=== PATIENT | female | born 1930 | race Caucasian/White ===

== ENCOUNTER 2016-11-17 12:26 | Emergency (ER) | payer OTHER ==
[~2016-11-17] VITALS: Ht 160 cm; Wt 56.2 kg
[~2016-11-17 12:26] MED LIST: ADVAIR 250/501 EA INH; ASPIRIN81 M1 PO; CEPHALEXIN500 M1 PO; GABAPENTIN300 MG PO; HYDROCODONE BIT1 T11 PO; LOPRESSOR25 MG PO; PERPHENAZINE; SYMBICORT1 AE1 INH; ZOFRAN4 MG PO
[2016-11-17] MEDS ORDERED: COZAAR100 MG PO (12:46)
[2016-11-17 12:58] VITALS: BP 147/68
[2016-11-17 13:15] LABS: EOS % 0.1 % (1.0-4.0); HEMATOCRIT 34.7 % (37.0-47.0); HEMOGLOBIN 11.2 g/dl (12.0-16.0); LYMPH # 0.8 10*3/uL (1.3-4.4); LYMPH % 10.6 % (27.0-41.0); MEAN CELL VOLUME 93.3 fl (81.0-99.0); MEAN CORPUSCULAR HGB 30.1 pg (27.0-31.0); MEAN CORPUSCULAR HGB CONC 32.3 g/dl (33.0-37.0); MEAN PLATELET VOLUME 9.3 fl (9.6-12.3); MONO # 0.6 10*3/uL (0.1-1.0); MONO % 7.9 % (3.0-9.0); NEUT # 6.2 10*3/uL (2.3-7.9); PLATELET COUNT AUTOMATED 176 10*3/uL (130-400); RED BLOOD COUNT 3.72 10*6/uL (4.10-5.10); RED CELL DISTRI WIDTH 12.9 % (0-14.5); WHITE BLOOD COUNT 7.7 10*3/uL (4.8-10.8)
[2016-11-17 13:27] LABS: BUN 18 mg/dl (7-24); CARBON DIOXIDE 29 mmol/L (21-32); CHLORIDE 106 mmol/L (98-107); EST GLOM FILT AFRICAN AMERICAN > 60 ml/min; GLUCOSE 89 mg/dL (65-99); POTASSIUM 4.5 mmol/L (3.5-5.1); SODIUM 144 mmol/L (136-145)
[2016-11-17] MEDS ORDERED: PROVENTIL0.09 MG/A1 INH (14:33)
[2016-11-17] MEDS ORDERED: VIBRAMYCIN100 MG PO (14:33)
== END 2016-11-17 15:12 | disposition home or self-care (01) ==
LOC: ED 12:26
PROVIDERS: Emergency Medicine
DX: J44.1 Chronic obstructive pulmonary disease with (acute) exacerbation (principal); J45.909 Unspecified asthma, uncomplicated; Z79.82 Long term (current) use of aspirin; Z79.899 Other long term (current) drug therapy

== ENCOUNTER 2017-05-05 10:52 | Inpatient (IN) | payer OTHER ==
[~2017-05-05] VITALS: Ht 160 cm; Wt 55.3 kg
[~2017-05-05 10:52] MED LIST changes: +COZAAR100 MG PO; -GABAPENTIN300 MG PO; +NEURONTIN300 MG PO; +PROVENTIL0.09 MG/A1 INH; +VIBRAMYCIN100 MG PO
[2017-05-05 10:57] VITALS: BP 153/74
[2017-05-05 11:33] LABS: BASO % 0.2 % (0.0-1.0); EOS % 0.1 % (1.0-4.0); HEMATOCRIT 35.3 % (37.0-47.0); HEMOGLOBIN 11.3 g/dl (12.0-16.0); LYMPH # 0.6 10*3/uL (1.3-4.4); LYMPH % 4.1 % (27.0-41.0); MEAN CELL VOLUME 93.4 fl (81.0-99.0); MEAN CORPUSCULAR HGB 29.9 pg (27.0-31.0); MEAN PLATELET VOLUME 9.9 fl (9.6-12.3); MONO # 1.2 10*3/uL (0.1-1.0); MONO % 8.6 % (3.0-9.0); NEUT # 11.5 10*3/uL (2.3-7.9); NEUT % 86.6 % (47.0-73.0); PLATELET COUNT AUTOMATED 185 10*3/uL (130-400); RED BLOOD COUNT 3.78 10*6/uL (4.10-5.10); RED CELL DISTRI WIDTH 13.3 % (0-14.5); WHITE BLOOD COUNT 13.3 10*3/uL (4.8-10.8)
[2017-05-05 11:41] LABS: ACT PARTIAL THROMBO TIME 27.8 SECONDS (20.8-31.5)
[2017-05-05 11:52] LABS: ALBUMIN 3.4 gm/dl (3.1-4.5); ALKALINE PHOSPHATASE 71 U/L (45-117); BUN 21 mg/dl (7-24); CHLORIDE 104 mmol/L (98-107); CKMB 0.6 ng/ml (0.5-3.6); CPK 137 U/L (26-192); CREATININE 0.86 mg/dL (0.55-1.02); LIPASE 159 U/L (73-393); MAGNESIUM 2.2 mg/dL (1.5-2.1); POTASSIUM 4.2 mmol/L (3.5-5.1); SGOT/AST 14 IU/L (3-35); SGPT/ALT 13 U/L (12-78); SODIUM 137 mmol/L (136-145); TOTAL PROTEIN 6.8 gm/dL (6.4-8.2)
[2017-05-05 11:53] LABS: TROPONIN I < 0.015 ng/ml (<0.045)
[2017-05-05 12:54] VITALS: BP 140/80
--- NOTE | 2017-05-05 14:15 | NUR ---
A 86, admitted to , under the services of MATT Farr DO with a diagnosis of ASTHMA EXACERBATION. Chief complaint is SOB. Patient arrived via bed from ER. Monitor applied. Initial assessment completed. Vital signs taken and recorded. MATT FARR DO notified of admission to the unit. Orders received. See assessment for past medical history, medications and allergies. Patient and/or family oriented to unit. [facility] reviewed. Clothing/patient valuable form completed. CAITIE BASURTO
[2017-05-05] MEDS ORDERED: XANAX0.25 MG PO (14:43)
[2017-05-05] MEDS ORDERED: ATARAX,VISTARIL10 MG PO (14:43)
--- NOTE | 2017-05-05 14:44 | NUR ---
MEDICATION LIST UPDATED WITH PHARMACIST AT [facility].
[2017-05-05 16:00] VITALS: BP 117/98
--- NOTE | 2017-05-05 18:20 | NUR ---
PT. C/O HEADACHE "5" ON 0-10 SCALE, DESCRIBED "THUMPING" , REQUESTED MOTRIN FOR RELIEF. PROVIDED TYELENOL 650MG FOR RELIEF. PT. STATED NO ADVERSE EFFECTS TO TYELENOL.
--- NOTE | 2017-05-05 19:06 | NUR ---
late entry---DR GARNER NOTIFIED THAT PT IS UNABLE TO TOLERATE BOLUS & IVF TURNED DOWN TO 80/HR PER ORDERS.
[2017-05-05 20:00] VITALS: BP 144/46
--- NOTE | 2017-05-05 20:00 | NUR ---
24 HR chart check completed.
[2017-05-06] VITALS: BP 128/73
--- NOTE | 2017-05-06 00:04 | NUR ---
PATIENT AWAKE IN BED, A&OX3. PATIENT DENIES ANY SOB AT REST/CHEST PAIN AT THIS TIME. MOIST NON-PRODUCTIVE COUGH NOTED. PATIENT ENCOURAGED TO COUGH/DEEP BREATHE. WILL MONITOR. CALL LIGHT LEFT WITHIN REACH.
--- NOTE | 2017-05-06 03:49 | NUR ---
PATIENT ASLEEP IN BED AT THIS TIME. RESPIRATIONS EASY, NO S/S OF DISTRESS NOTED. WILL MONITOR. CALL LIGHT IN REACH.
[2017-05-06 06:59] LABS: HEMATOCRIT 35.1 % (37.0-47.0); HEMOGLOBIN 11.2 g/dl (12.0-16.0); MEAN CELL VOLUME 95.1 fl (81.0-99.0); MEAN CORPUSCULAR HGB 30.4 pg (27.0-31.0); MEAN CORPUSCULAR HGB CONC 31.9 g/dl (33.0-37.0); MEAN PLATELET VOLUME 9.8 fl (9.6-12.3); PLATELET COUNT AUTOMATED 168 10*3/uL (130-400); RED BLOOD COUNT 3.69 10*6/uL (4.10-5.10); RED CELL DISTRI WIDTH 13.3 % (0-14.5); WHITE BLOOD COUNT 13.1 10*3/uL (4.8-10.8)
[2017-05-06 07:36] LABS: ROULEAUX SLIGHT; TOTAL CELLS COUNTED 100 #CELLS
[2017-05-06 07:37] LABS: PLATELET SUFFICIENCY NORMAL (NORMAL)
[2017-05-06 07:39] LABS: BUN 21 mg/dl (7-24); CHLORIDE 109 mmol/L (98-107); CREATININE 0.76 mg/dL (0.55-1.02); POTASSIUM 4.6 mmol/L (3.5-5.1); SODIUM 142 mmol/L (136-145)
[2017-05-06 07:46] LABS: THYROID STIM HORMONE (HS) 0.297 uIU/ml (0.358-4.75)
[2017-05-06 07:59] LABS: VITAMIN D, 25-HYDROXY 15.6 ng/mL (30-100)
[2017-05-06 08:00] VITALS: BP 132/60; BP 168/74
--- NOTE | 2017-05-06 08:00 | NUR ---
Human Resource Internship in to talk to patient. Patient states lives at [address] with HER . There are 0 steps in the home. Physician: [facility] [place] Pharmacy: [facility] [place] Home health services: NONE Patient's level of ADLs: INDEPENDENT Patient has working utilities: YES DME: NONE Follow-up physician's appointment after d/c: WILL BE MADE PRIOR TO DC Does patient want to access PORTAL?: Discharge plan HOME. [place] DENIES ANY DC NEEDS. HAS 2 SONS THAT HELP WHEN NEEDED. DOES NOT FEEL SHE NEEDS HOME HEALTH SERVICES
--- NOTE | 2017-05-06 08:00 | NUR ---
PT. AWAKE AND ORIENTED X 3 UPON ENTERING ROOM, DIMINISHED LUNG SOUNDS WITH SLIGHT RALES TO EACH LOBE, S1S2, BOARD UPDATED, BREAKFAST ORDERED, CALL LIGHT WITHIN REACH, BED IN LOWEST POSITION, WHEELS LOCKED; NO COMPLAINTS OR REQUESTS FROM PT. AT THIS TIME.
--- NOTE | 2017-05-06 08:54 | NUR ---
PT. UP TO CHAIR AT THIS TIME TO EAT BREAKFAST, ASSISTED WITH IV POLE, BUT GAIT STEADY DURING AMBULATION, NO SIGNS OR COMPLAINTS OF SOB AT THIS TIME.
[2017-05-06 12:00] VITALS: BP 138/64
--- NOTE | 2017-05-06 12:45 | NUR ---
PT. DECLINED XANAX AT THIS TIME, AND DENIES ANXIETY AT THIS TIME.
[2017-05-06 16:00] VITALS: BP 144/62
[2017-05-06 20:00] VITALS: BP 146/68
[2017-05-07] VITALS: BP 153/90
--- NOTE | 2017-05-07 | NUR ---
PT RESTING IN BED. NO C/O AT THIS TIME. CALL LIGHT IN REACH. SEE SHIFT ASSESSMENT.
--- NOTE | 2017-05-07 04:00 | NUR ---
PT SLEEPING IN BED. RESP-EASY AND REGULAR. CALL LIGHT IN REACH.
--- NOTE | 2017-05-07 06:00 | NUR ---
TOLERATED ROUTINE MED WITH NO PROBLEM. NO C/O AT THIS TIME. CALL LIGHT IN REACH.
[2017-05-07 06:47] LABS: HEMATOCRIT 36.5 % (37.0-47.0); HEMOGLOBIN 11.3 g/dl (12.0-16.0); MEAN CELL VOLUME 96.1 fl (81.0-99.0); MEAN CORPUSCULAR HGB 29.7 pg (27.0-31.0); PLATELET COUNT AUTOMATED 213 10*3/uL (130-400); RED CELL DISTRI WIDTH 13.5 % (0-14.5); WHITE BLOOD COUNT 23.5 10*3/uL (4.8-10.8)
[2017-05-07 07:01] LABS: CHLORIDE 107 mmol/L (98-107); CREATININE 0.91 mg/dL (0.55-1.02); FREE T4 0.94 ng/dl (0.76-1.46); POTASSIUM 4.5 mmol/L (3.5-5.1); SODIUM 142 mmol/L (136-145)
[2017-05-07 07:11] LABS: BUN 31 mg/dl (7-24); TOTAL CELLS COUNTED 100 #CELLS
[2017-05-07 07:12] LABS: PLATELET SUFFICIENCY NORMAL (NORMAL)
--- NOTE | 2017-05-07 07:29 | NUR ---
Shift chart check completed.
--- NOTE | 2017-05-07 07:35 | NUR ---
PT. ALERT AND ORIENTED UPON ENTERING ROOM, SLIGHT WHEEZE ON AUSCULTATION, PT. DENIES SOB DURING REST, DENIES CP, DENIES N/V/D. CALL LIGHT WITHIN REACH, BED IN LOWEST POSITION, WHEELS LOCKED.
[2017-05-07 08:00] VITALS: BP 152/84
--- NOTE | 2017-05-07 10:00 | NUR ---
GOVIND REVIEWED WITH
[2017-05-07 12:00] VITALS: BP 138/71
--- NOTE | 2017-05-07 13:25 | NUR ---
1325 SAT 95% RA AT REST 1355 SAT 95% RA AT REST SAT 92-93 RA DURING AMBULATION APPROXIMATELY 64 FEET. HR 95-100 SAT 91% RA AT REST DURING RECOVERY. SLIGHT SOB NOTED AFTER WALK. PT HAVING SOME DIFFICULTY WITH BALANCE WHEN WALKING. STATES SHE CAN NOT WALK ANYMORE. AND RN NOTIFIED.
[2017-05-07 16:45] VITALS: BP 152/65
[2017-05-07 20:00] VITALS: BP 140/76
--- NOTE | 2017-05-07 20:10 | NUR ---
PT SITTING UP AT SIDE OF BED. RESP-EASY AND REGULAR. PT C/O CONSTIPATION, MEDICATED WITH DUCOLAX PO PER PRN ORDER, SEE EMAR. CALL LIGHT IN REACH. SEE SHIFT ASSESSMENT.
--- NOTE | 2017-05-07 22:00 | NUR ---
PT RESTING IN BED. TOLERATED ROUTINE MEDS WITH NO PROBLEM. NO C/O AT THIS TIME. CALL LIGHT IN REACH.
[2017-05-08] VITALS: BP 176/83
--- NOTE | 2017-05-08 00:10 | NUR ---
PT RESTING IN BED WITH EYES CLOSED. RESP-EASY AND REGULAR. CALL LIGHT IN REACH. SEE SHIFT ASSESSMENT.
--- NOTE | 2017-05-08 04:00 | NUR ---
PT SLEEPING IN BED. RESP-EASY AND REGULAR. CALL LIGHT IN REACH.
--- NOTE | 2017-05-08 06:00 | NUR ---
PT RESTING IN BED WITH EYES CLOSED, AWAKENS EASILY. TOLERATED ROUTINE MED WITH NO PROBLEM. CALL LIGHT IN REACH.
[2017-05-08 06:36] LABS: HEMATOCRIT 33.3 % (37.0-47.0); HEMOGLOBIN 10.7 g/dl (12.0-16.0); MEAN CELL VOLUME 94.6 fl (81.0-99.0); MEAN CORPUSCULAR HGB 30.4 pg (27.0-31.0); MEAN CORPUSCULAR HGB CONC 32.1 g/dl (33.0-37.0); PLATELET COUNT AUTOMATED 216 10*3/uL (130-400); RED BLOOD COUNT 3.52 10*6/uL (4.10-5.10); RED CELL DISTRI WIDTH 13.4 % (0-14.5); WHITE BLOOD COUNT 19.8 10*3/uL (4.8-10.8)
[2017-05-08 07:02] LABS: BUN 38 mg/dl (7-24); CHLORIDE 107 mmol/L (98-107); CREATININE 0.84 mg/dL (0.55-1.02); POTASSIUM 4.4 mmol/L (3.5-5.1); SODIUM 140 mmol/L (136-145)
[2017-05-08 07:25] LABS: PLATELET SUFFICIENCY NORMAL (NORMAL); TOTAL CELLS COUNTED 100 #CELLS
[2017-05-08 08:00] VITALS: BP 164/80
[2017-05-08 12:00] VITALS: BP 145/90
[2017-05-08 16:00] VITALS: BP 94/76
[2017-05-08 20:00] VITALS: BP 155/78
--- NOTE | 2017-05-08 20:20 | NUR ---
PT SITTING UP IN CHAIR WITH VISITOR AT HER SIDE. RESP-EASY AND REGULAR. NO C/O AT THIS TIME. CALL LIGHT IN REACH. SEE SHIFT ASSESSMENT.
--- NOTE | 2017-05-08 22:00 | NUR ---
PT SITTING UP IN BED. RESP-EASY AND REGULAR. TOLERATED ROUTINE MED WITH NO PROBLEM. CALL LIGHT IN REACH.
[2017-05-09] VITALS: BP 156/72
--- NOTE | 2017-05-09 00:15 | NUR ---
PT RESTING IN BED. NO C/O AT THIS TIME. NO SOB NOTED. CALL LIGHT IN REACH. SEE SHIFT ASSESSMNET.
--- NOTE | 2017-05-09 04:00 | NUR ---
PT SLEEPING IN BED. RESP-EASY AND REGULAR. CALL LIGHT IN REACH.
--- NOTE | 2017-05-09 05:36 | NUR ---
TOLERATED ROUTINE MED WITH NO PROBLEM. C/O HEADACHE RATES PAIN 4 OR 5 ON PAIN SCALE 0-10. MEDICATED WITH TYLENOL PO PER PRN ORDER, SEE EMAR. CALL LIGHT IN REACH.
[2017-05-09 06:16] LABS: BASO % 0.1 % (0.0-1.0); HEMATOCRIT 35.7 % (37.0-47.0); HEMOGLOBIN 11.2 g/dl (12.0-16.0); LYMPH # 0.8 10*3/uL (1.3-4.4); LYMPH % 5.6 % (27.0-41.0); MEAN CELL VOLUME 94.4 fl (81.0-99.0); MEAN CORPUSCULAR HGB 29.6 pg (27.0-31.0); MEAN CORPUSCULAR HGB CONC 31.4 g/dl (33.0-37.0); MEAN PLATELET VOLUME 9.9 fl (9.6-12.3); MONO # 0.6 10*3/uL (0.1-1.0); MONO % 4.6 % (3.0-9.0); NEUT # 12.4 10*3/uL (2.3-7.9); NEUT % 88.5 % (47.0-73.0); PLATELET COUNT AUTOMATED 221 10*3/uL (130-400); RED BLOOD COUNT 3.78 10*6/uL (4.10-5.10); RED CELL DISTRI WIDTH 13.3 % (0-14.5)
[2017-05-09 06:41] LABS: BUN 32 mg/dl (7-24); CHLORIDE 104 mmol/L (98-107); CREATININE 0.84 mg/dL (0.55-1.02); POTASSIUM 4.3 mmol/L (3.5-5.1); SODIUM 142 mmol/L (136-145)
[2017-05-09 08:00] VITALS: BP 160/88
[2017-05-09 12:00] VITALS: BP 154/78
--- NOTE | 2017-05-09 13:00 | NUR ---
PT COMPLAINS OF NO PAIN POST PLERODESIS.
[2017-05-09 16:00] VITALS: BP 150/56
[2017-05-09 20:00] VITALS: BP 156/67
--- NOTE | 2017-05-09 20:00 | NUR ---
PT C/O CONSTIPATION. PRN LAXATIVES AVAILABE REVIEWED. MEDICATED WITH PRN DULCOLAX PER PT REQUEST.
[2017-05-10] VITALS: BP 125/82
[2017-05-10 06:53] LABS: HEMATOCRIT 35.2 % (37.0-47.0); HEMOGLOBIN 11.1 g/dl (12.0-16.0); MEAN CELL VOLUME 94.9 fl (81.0-99.0); MEAN CORPUSCULAR HGB 29.9 pg (27.0-31.0); MEAN CORPUSCULAR HGB CONC 31.5 g/dl (33.0-37.0); MEAN PLATELET VOLUME 9.5 fl (9.6-12.3); PLATELET COUNT AUTOMATED 226 10*3/uL (130-400); RED BLOOD COUNT 3.71 10*6/uL (4.10-5.10); RED CELL DISTRI WIDTH 13.2 % (0-14.5)
[2017-05-10 07:20] LABS: BUN 31 mg/dl (7-24); CHLORIDE 106 mmol/L (98-107); CREATININE 0.79 mg/dL (0.55-1.02); POTASSIUM 4.9 mmol/L (3.5-5.1); SODIUM 144 mmol/L (136-145)
[2017-05-10 07:34] LABS: PLATELET SUFFICIENCY NORMAL (NORMAL); TOTAL CELLS COUNTED 100 #CELLS
[2017-05-10 08:00] VITALS: BP 158/94
--- NOTE | 2017-05-10 08:30 | NUR ---
ALTERNATIVE ENERGY ENGINEER VS. DISCUSSED P.T. NOTES OVER WEEKEND. DOES NOT WANT TO GO TO SNF FACILITY. STATES FEELING STRONGER TODAY. DOES AGREE TO HOME HEALTH [facility] CHOOSES [facility] NURSE AND PT.
[2017-05-10] MEDS ORDERED: PREDNISONE10 MG PO (13:27)
[2017-05-10] MEDS ORDERED: VITAMIN D31000 UNI1 PO (13:27)
[2017-05-10] MEDS ORDERED: DOXYCYCLINE100 M3 PO (13:27)
[2017-05-10] MEDS ORDERED: PROPRANOLOL HCL10 MG PO (13:27)
--- NOTE | 2017-05-10 13:39 | NUR ---
DISCHARGED HOME AFTER INSTRUCTIONS GIVEN TO PATIENT.
--- NOTE | 2017-05-10 15:03 | NUR ---
patient discharged to home requesting home health via [facility]. Received order, faxed order and clincals
== END 2017-05-10 13:39 | disposition home or self-care (01) | DRG 871 ==
LOC: ED 10:52 → EDHOLD 12:34 → 5E 12:34
PROVIDERS: Emergency Medicine; Student in an Organized Health Care Education/Training Program; ADMIT Internal Medicine
DX: A41.9 Sepsis, unspecified organism (principal); J18.9 Pneumonia, unspecified organism; E44.1 Mild protein-calorie malnutrition; F41.1 Generalized anxiety disorder; I10 Essential (primary) hypertension; R27.0 Ataxia, unspecified; E55.9 Vitamin D deficiency, unspecified; J44.9 Chronic obstructive pulmonary disease, unspecified; Z87.81 Personal history of (healed) traumatic fracture; Z90.710 Acquired absence of both cervix and uterus; Z68.21 Body mass index [BMI] 21.0-21.9, adult; Z79.82 Long term (current) use of aspirin; Z79.899 Other long term (current) drug therapy; Z82.49 Family history of ischemic heart disease and other diseases of the circulatory system

== ENCOUNTER 2017-12-27 04:07 | Inpatient (IN) | payer OTHER ==
[~2017-12-27] VITALS: Ht 162.5 cm; Wt 52.6 kg
[2017-12-27] VITALS (7 sets, daily range): BP systolic 141–194; BP diastolic 65–90
[~2017-12-27 04:07] MED LIST changes: +ATARAX,VISTARIL10 MG PO; +DOXYCYCLINE100 M3 PO; +PREDNISONE10 MG PO; +PROPRANOLOL HCL10 MG PO; +VITAMIN D31000 UNI1 PO; +XANAX0.25 MG PO
[2017-12-27 04:31] LABS: BILIRUBIN NEGATIVE (NEGATIVE); BLOOD TRACE-LYSED (NEGATIVE); CLARITY CLEAR (CLEAR); COLOR YELLOW (YELLOW); GLUCOSE NEGATIVE (NEGATIVE); KETONE NEGATIVE (NEGATIVE); LEUKO ESTERASE 1+ (NEGATIVE); NITRITE NEGATIVE (NEGATIVE); SPECIFIC GRAVITY <= 1.005 (1.005-1.030); UROBILINOGEN 0.2 E.U./dl (0.2-1.0)
[2017-12-27 04:39] LABS: WBC 21-30 wbc/hpf (0-5)
[2017-12-27 04:40] LABS: BACTERIA TRACE
[2017-12-27 04:41] LABS: URINE AMPHETAMINES < 1000 (1000ng/ml); URINE BARBITURATES < 200 (200ng/ml); URINE BENZODIAZEPINES < 200 (200ng/ml); URINE CANNABINOIDS (THC) < 50 (50ng/ml); URINE COCAINE < 300 (300ng/ml); URINE METHADONE < 300 (300ng/ml); URINE OPIATES < 300 (300ng/ml)
[2017-12-27 04:42] LABS: URINE PHENCYCLIDINE < 25 (25ng/ml)
[2017-12-27 04:52] LABS: BASO % 0.3 % (0.0-1.0); EOS # 0.2 10*3/uL (0.0-0.4); EOS % 2.5 % (1.0-4.0); HEMATOCRIT 37.4 % (37.0-47.0); HEMOGLOBIN 11.6 g/dl (12.0-16.0); LYMPH # 1.1 10*3/uL (1.3-4.4); LYMPH % 11.3 % (27.0-41.0); MEAN CELL VOLUME 94.9 fl (81.0-99.0); MEAN CORPUSCULAR HGB 29.4 pg (27.0-31.0); MEAN PLATELET VOLUME 9.8 fl (9.6-12.3); MONO # 0.8 10*3/uL (0.1-1.0); MONO % 7.9 % (3.0-9.0); NEUT # 7.4 10*3/uL (2.3-7.9); NEUT % 77.6 % (47.0-73.0); PLATELET COUNT AUTOMATED 203 10*3/uL (130-400); RED BLOOD COUNT 3.94 10*6/uL (4.10-5.10); RED CELL DISTRI WIDTH 13.1 % (0-14.5); WHITE BLOOD COUNT 9.5 10*3/uL (4.8-10.8)
[2017-12-27 05:02] LABS: ACT PARTIAL THROMBO TIME 26.4 SECONDS (20.8-31.5); INTERNATIONAL NORM RATIO 0.9 (2.0-3.5)
[2017-12-27 05:09] LABS: ALBUMIN 3.5 gm/dl (3.1-4.5); ALKALINE PHOSPHATASE 75 U/L (45-117); BUN 19 mg/dl (7-24); CHLORIDE 106 mmol/L (98-107); CREATININE 0.77 mg/dL (0.55-1.02); POTASSIUM 3.9 mmol/L (3.5-5.1); SGOT/AST 15 IU/L (3-35); SGPT/ALT 17 U/L (12-78); SODIUM 143 mmol/L (136-145); TOTAL PROTEIN 6.9 gm/dL (6.4-8.2)
[2017-12-27 05:11] LABS: ACETAMINOPHEN (TYLENOL) < 2.0 ug/ml (10-30); ETHYL ALCOHOL < 3.0 mg/dl (<3); TROPONIN I < 0.015 ng/ml (<0.045)
[2017-12-27 07:09] LABS: FREE T4 0.91 ng/dl (0.76-1.46)
[2017-12-27 07:14] LABS: THYROID STIM HORMONE (HS) 3.21 uIU/ml (0.358-4.75)
[2017-12-27 09:12] LABS: VITAMIN D, 25-HYDROXY 23.1 ng/mL (30-100)
[2017-12-27] MEDS ORDERED: CLOBETASOL PROP15 GM T (12:25)
[2017-12-27] MEDS ORDERED: COZAAR100 MG PO (12:26)
[2017-12-28] VITALS: BP 147/80
[2017-12-28 06:31] LABS: BASO % 0.3 % (0.0-1.0); EOS # 0.4 10*3/uL (0.0-0.4); EOS % 4.4 % (1.0-4.0); HEMATOCRIT 34.4 % (37.0-47.0); HEMOGLOBIN 10.6 g/dl (12.0-16.0); LYMPH # 1.3 10*3/uL (1.3-4.4); LYMPH % 15.7 % (27.0-41.0); MEAN CELL VOLUME 94.8 fl (81.0-99.0); MEAN CORPUSCULAR HGB 29.2 pg (27.0-31.0); MEAN CORPUSCULAR HGB CONC 30.8 g/dl (33.0-37.0); MONO # 0.7 10*3/uL (0.1-1.0); MONO % 8.2 % (3.0-9.0); NEUT # 5.7 10*3/uL (2.3-7.9); PLATELET COUNT AUTOMATED 185 10*3/uL (130-400); RED BLOOD COUNT 3.63 10*6/uL (4.10-5.10); RED CELL DISTRI WIDTH 13.2 % (0-14.5)
[2017-12-28 07:05] LABS: ALBUMIN 2.8 gm/dl (3.1-4.5); ALKALINE PHOSPHATASE 64 U/L (45-117); BUN 16 mg/dl (7-24); CHLORIDE 107 mmol/L (98-107); CREATININE 0.68 mg/dL (0.55-1.02); PHOSPHOROUS 3.6 mg/dL (2.5-4.9); POTASSIUM 4.3 mmol/L (3.5-5.1); SGOT/AST 20 IU/L (3-35); SGPT/ALT 17 U/L (12-78); SODIUM 144 mmol/L (136-145)
[2017-12-28 08:00] VITALS: BP 158/76
[2017-12-28] MEDS ORDERED: VITAMIN D-32000 UNI1 PO (09:11)
[2017-12-28] MEDS ORDERED: CEFUROXIME AXE250 MG PO (09:11)
== END 2017-12-28 11:49 | disposition home or self-care (01) | DRG 689 ==
LOC: ED 04:07 → 4E 05:32 → EDHOLD 05:32 → 4E 05:37
PROVIDERS: Internal Medicine; Student in an Organized Health Care Education/Training Program
DX: N39.0 Urinary tract infection, site not specified (principal); G93.41 Metabolic encephalopathy; D64.9 Anemia, unspecified; J44.9 Chronic obstructive pulmonary disease, unspecified; F41.1 Generalized anxiety disorder; I10 Essential (primary) hypertension; E55.9 Vitamin D deficiency, unspecified; M19.90 Unspecified osteoarthritis, unspecified site; Z98.49 Cataract extraction status, unspecified eye; Z90.710 Acquired absence of both cervix and uterus; Z82.49 Family history of ischemic heart disease and other diseases of the circulatory system; Z79.52 Long term (current) use of systemic steroids; Z79.899 Other long term (current) drug therapy

== ENCOUNTER → 2018-04-29 | Outpatient (CLI) | payer OTHER ==
[~2018-04-29] MED LIST changes: +AMLODIPINE BESY10 MG PO; +CEFUROXIME AXE250 MG PO; +CLOBETASOL PROP15 GM T; +Ipratropium Brom3 ML INH; +MORPHINE SU2 MG/1 M2 IV; +NAMENDA10 MG PO; +NEURONTIN600 MG PO; +PRAVACHOL20 MG PO; +RISPERDAL0.25 MG PO; +VICODIN 5-3001 EACH PO; +VITAMIN D-32000 UNI1 PO; +Zofran4 MG SL
== END | disposition home or self-care (01) ==
LOC: ORTHO 03:15
DX: M19.041 Primary osteoarthritis, right hand (principal); M25.741 Osteophyte, right hand; M81.0 Age-related osteoporosis without current pathological fracture; M79.89 Other specified soft tissue disorders; Z91.81 History of falling

== ENCOUNTER 2018-05-09 12:45 | Inpatient (IN) | payer OTHER ==
[~2018-05-09] VITALS: Ht 162.5 cm; Wt 61.9 kg
--- NOTE | ~2018-05-09 | PR ---
[place], [place] PROGRESS NOTE NAME: JAZZMINE ZHU [facility] #: [id number] UNIT #: [id number] ROOM: 421 DOCTOR: JENNA MAYORGA MD BIRTHDATE: [birth year] DOS: 05/10/2018 INPATIENT PROGRESS NOTE SUBJECTIVE: The patient did well overnight. She does have some pain in the right hip. OBJECTIVE: VITAL SIGNS: Stable. EXTREMITIES: I examined the right hip. No change in exam compared to yesterday evening. Thigh remained soft. LABORATORY DATA: This morning, white count is 12.3. H and H is 9.1 and 29.8. Platelets are 203. ASSESSMENT: An 87-year-old female Catholic, who refuses blood products with a right hip intertrochanteric/subtrochanteric proximal femur fracture. I was contacted by the nurse last evening around 8:00 p.m., informing that the family has decided to transfer to [place]. There is an orthopedic surgeon there in [place], who has taken care of many of the members of her tenriism community. They feel more comfortable with him performing the surgery and want to proceed with him. They are requesting transfer to [place]. They report that this surgeon performs "bloodless hip surgery." This morning, I did round on the patient and speak with the patient directly. She informed me of her desire to be transferred to [place] for the "bloodless hip surgery." I did explain that really blood less hip surgery does not exist. With any hip surgery, there is blood loss. I outlined measures that I would take to minimize blood loss, which would include thoughtful incisions, hemostasis with electrocautery, anticoagulation in the wound bed with coagulation products such as thrombin and Gelfoam. My EBL on a typical intramedullary hip is anywhere from 100 to 200 mL. It is true that the patient is anemic. She is starting out at 9.1 and 29.8. She may be even lower if she is dehydrated. There is a risk that her blood level fall even further during hip surgery and she may need aggressive measures to maintain fluid volume. I did rereview of the risks of hip fracture surgery in general, which include blood clot, infection, pulmonary embolus, hardware failure, nonunion, malunion, need for revision surgery, loss of function, and other risks. At her age, with her medical comorbidities, there are big risks of an adverse outcome. Of note, she has a proximal humerus fracture as well, which means she probably has marked osteopenia, which means that the fixation strength of the hardware will be less giving her high risk for complication, the patient is aware. At the end of the day, the patient desires to be transferred to [place], [place] PROGRESS NOTE NAME: JAZZMINE ZHU UNIT #: [id number] ROOM: 421 DOCTOR: JENNA MAYORGA MD BIRTHDATE: [birth year] of course, I respect her decision and wish her the best. Jenna Mayorga MD CM:PNTRANS 5 12 JENNA MAYORGA MD 05/[id number] interface
--- NOTE | ~2018-05-09 | CON ---
[place], [place] REPORT OF CONSULTATION NAME: [facility] ZHU [facility] [id number] UNIT #: [id number] ROOM: 421 DOCTOR: JENNA MAYORGA MD BIRTHDATE: [birth year] DOS: 05/09/2018 INPATIENT CONSULT NOTE CHIEF COMPLAINT: Right hip pain. HISTORY OF PRESENT ILLNESS: This is a pleasant 87-year-old female, who had a mechanical fall when she tripped over the rug at the bottom of her bed. She fell directly under her right side. Did not hit her head. No chest pain. No loss of consciousness. She has got lot of pain in the right hip. It is about 9 on a scale of 1-10 with 10 being the worst. Pain is in the groin and outer aspect of the hip. No pain in the left hip. No pain in the right nor the left knee. She has got four family members at the bedside including her . Of note, the patient is a Mu-ism, who refuses blood products. PAST MEDICAL AND SURGICAL HISTORY: 1. Hypertension. 2. History of recent humerus fracture. 3. Asthma. 4. COPD. 5. Anxiety. 6. Status post hysterectomy. 7. Status post cataract surgery. SOCIAL HISTORY: No alcohol use. No illicit drug use. No tobacco use. ALLERGIES TO MEDICINEs: None. REVIEW OF SYSTEMS: A 12-point review of systems was conducted and is negative except for pertinent positives listed in the history of present illness. PHYSICAL EXAMINATION: GENERAL APPEARANCE: Well. She is oriented to person, place and time. Her mood is euthymic. Her affect is appropriate. EXTREMITIES: I examined the right lower leg. SKIN: Intact about the thigh. All compartments in the thigh and lower leg are soft. She is tender to palpation over the right trochanter. She is tender to palpation over the right knee and the right ankle. She can flex and extend the right toes and the right ankle. No tenderness to palpation over the left hip, left knee, left ankle. LABORATORY DATA: White count 11.8. H and H is 9.9 and 32.5. Platelets are 225. INR 1.0. Sodium is 143. Creatinine is 0.7. Total protein 6.5. Albumin 3.1. I examined the right hip radiographs showing intertrochanteric/subtrochanteric right proximal femur fracture. ASSESSMENT AND PLAN: An 87-year-old female, right proximal femur intertrochanteric/subtrochanteric femur fracture. [place], [place] REPORT OF CONSULTATION NAME: JAZZMINE ZHU [facility] #: [id number] UNIT #: [id number] ROOM: 421 DOCTOR: JENNA MAYORGA MD BIRTHDATE: [birth year] I talked to the patient and to the family about the surgical options at the bedside. I discussed hemiarthroplasty, intramedullary nailing and nonoperative management. Hemiarthroplasty is not appropriate due to the geometry of the fracture. I discussed intramedullary nailing. I think this is the best surgical option for her. This is a risky surgery, especially given the fact that she is starting anemic and will not accept blood products. I clarified with the and with the family. I clarified with the patient as well. Under all circumstances and conditions, she refuses blood products. She prefers first. She was very clear about this. I described surgical intervention with intramedullary nailing. This involves positioning on the fracture table with reduction of the fracture followed by incisions, followed by passing of the intramedullary nail, followed by screw fixation into the femoral head and then likely one locking screw distally. Risks include blood loss, infection, wound dehiscence, nonunion, malunion, hardware failure, loss of ability to walk, loss of function, chronic pain, blood clot, pulmonary embolus and other risks. Mortality is definitely a risk as well. I would say that the 1-year mortality for all comers for hip fractures is about 30% and she is higher given that she is a Jehovah Witness, who refuses blood products and is anemic at baseline and given her age. I did outline nonoperative management. This was rejected by the family. I agree. It is not a great option for her given that would severely limit her functionality and put her at risk for things like bedsores, deconditioning, blood clots, pulmonary emboli and . Informed consent was signed for the surgery. The plan is to proceed tomorrow on 05/10/2018 at 07:30 a.m. in the operating room. After full risks and benefit discussion, the patient signed informed consent for the surgery. She also signed a consent refusing blood products. Jenna Mayorga MD CM:CONSTR:REPORT OF CONSULTATION 1724 05/10/18 [id number] interface
[2018-05-09 12:45] VITALS: BP 162/91
[~2018-05-09 12:45] MED LIST changes: -Ipratropium Brom3 ML INH; -MORPHINE SU2 MG/1 M2 IV; -NEURONTIN600 MG PO
[2018-05-09 13:10] LABS: BASO % 0.2 % (0.0-1.0); EOS # 0.1 10*3/uL (0.0-0.4); EOS % 0.6 % (1.0-4.0); HEMATOCRIT 32.5 % (37.0-47.0); HEMOGLOBIN 9.9 g/dl (12.0-16.0); LYMPH # 0.6 10*3/uL (1.3-4.4); LYMPH % 4.7 % (27.0-41.0); MEAN CELL VOLUME 96.4 fl (81.0-99.0); MEAN CORPUSCULAR HGB 29.4 pg (27.0-31.0); MEAN CORPUSCULAR HGB CONC 30.5 g/dl (33.0-37.0); MEAN PLATELET VOLUME 9.7 fl (9.6-12.3); MONO # 0.6 10*3/uL (0.1-1.0); MONO % 5.3 % (3.0-9.0); NEUT # 10.4 10*3/uL (2.3-7.9); NEUT % 88.6 % (47.0-73.0); PLATELET COUNT AUTOMATED 225 10*3/uL (130-400); RED BLOOD COUNT 3.37 10*6/uL (4.10-5.10); WHITE BLOOD COUNT 11.8 10*3/uL (4.8-10.8)
[2018-05-09 13:13] VITALS: BP 156/90
[2018-05-09 13:18] LABS: ACT PARTIAL THROMBO TIME 23.5 SECONDS (20.8-31.5)
[2018-05-09 13:23] LABS: ALBUMIN 3.1 gm/dl (3.1-4.5); ALKALINE PHOSPHATASE 107 U/L (45-117); BUN 18 mg/dl (7-24); CHLORIDE 107 mmol/L (98-107); CREATININE 0.68 mg/dL (0.55-1.02); POTASSIUM 4.7 mmol/L (3.5-5.1); SGOT/AST 18 IU/L (3-35); SGPT/ALT 18 U/L (12-78); SODIUM 143 mmol/L (136-145); TOTAL PROTEIN 6.5 gm/dL (6.4-8.2)
[2018-05-09 14:30] VITALS: BP 121/64
[2018-05-09 15:09] VITALS: BP 124/68
[2018-05-09 16:35] VITALS: BP 151/65
[2018-05-09] MEDS ORDERED: ATARAX,VISTARIL10 MG PO (18:36)
[2018-05-09] MEDS ORDERED: NEURONTIN600 MG PO (18:37)
[2018-05-09] MEDS ORDERED: NEURONTIN300 MG PO (18:37)
[2018-05-09] MEDS ORDERED: Ipratropium Brom3 ML INH (18:38)
[2018-05-09] MEDS ORDERED: XANAX0.25 MG PO (18:42)
[2018-05-10] VITALS: BP 128/51
[2018-05-10 06:03] LABS: BASO % 0.2 % (0.0-1.0); EOS % 0.2 % (1.0-4.0); HEMATOCRIT 29.8 % (37.0-47.0); HEMOGLOBIN 9.1 g/dl (12.0-16.0); LYMPH % 8.4 % (27.0-41.0); MEAN CELL VOLUME 96.1 fl (81.0-99.0); MEAN CORPUSCULAR HGB 29.4 pg (27.0-31.0); MEAN CORPUSCULAR HGB CONC 30.5 g/dl (33.0-37.0); MEAN PLATELET VOLUME 10.2 fl (9.6-12.3); MONO # 1.1 10*3/uL (0.1-1.0); MONO % 8.9 % (3.0-9.0); NEUT # 10.1 10*3/uL (2.3-7.9); NEUT % 81.9 % (47.0-73.0); PLATELET COUNT AUTOMATED 203 10*3/uL (130-400); RED CELL DISTRI WIDTH 13.8 % (0-14.5); WHITE BLOOD COUNT 12.3 10*3/uL (4.8-10.8)
[2018-05-10 06:19] LABS: ALBUMIN 2.8 gm/dl (3.1-4.5); BUN 20 mg/dl (7-24); CHLORIDE 103 mmol/L (98-107); CHOLESTEROL 162 mg/dL (<200); CREATININE 0.65 mg/dL (0.55-1.02); PHOSPHOROUS 3.8 mg/dL (2.5-4.9); POTASSIUM 4.1 mmol/L (3.5-5.1); SGOT/AST 12 IU/L (3-35); SGPT/ALT 13 U/L (12-78); SODIUM 139 mmol/L (136-145); TOTAL PROTEIN 5.8 gm/dL (6.4-8.2); TRIGLYCERIDES 78 mg/dl (<150); VLDL CHOLESTEROL 16 mg/dL (6-40)
[2018-05-10 06:25] LABS: ALKALINE PHOSPHATASE 94 U/L (45-117); HDL CHOLESTEROL 86 mg/dl (40-60); LDL CHOLESTEROL 60 mg/dL (9-159)
[2018-05-10 07:46] LABS: VITAMIN D, 25-HYDROXY 21.8 ng/mL (30-100)
[2018-05-10 08:00] VITALS: BP 154/77
[2018-05-10] MEDS ORDERED: MORPHINE SU2 MG/1 M2 IV (10:14)
[2018-05-10 12:00] VITALS: BP 148/76
== END 2018-05-10 12:28 | disposition short-term general hospital (02) | DRG 536 ==
LOC: ED 12:45 → EDHOLD 14:51 → 4E 14:51
PROVIDERS: Nurse Practitioner Family; Registered Nurse
DX: S72.141A Displaced intertrochanteric fracture of right femur, initial encounter for closed fracture (principal); E55.9 Vitamin D deficiency, unspecified; F41.1 Generalized anxiety disorder; S72.21XA Displaced subtrochanteric fracture of right femur, initial encounter for closed fracture; W01.0XXA Fall on same level from slipping, tripping and stumbling without subsequent striking against object, initial encounter; J44.9 Chronic obstructive pulmonary disease, unspecified; I10 Essential (primary) hypertension; Z90.710 Acquired absence of both cervix and uterus; Z98.49 Cataract extraction status, unspecified eye; Z87.81 Personal history of (healed) traumatic fracture; Y93.89 Activity, other specified; Y92.89 Other specified places as the place of occurrence of the external cause; Y99.8 Other external cause status; Z79.82 Long term (current) use of aspirin; Z87.01 Personal history of pneumonia (recurrent); Z87.440 Personal history of urinary (tract) infections; Z82.49 Family history of ischemic heart disease and other diseases of the circulatory system